=== PATIENT | female | born 1990 | race African-American/Black ===

== ENCOUNTER 2017-10-27 23:31 | Emergency (ER) | payer OTHER ==
[~2017-10-27] VITALS: Ht 154.9 cm; Wt 65.5 kg
[~2017-10-27 23:31] MED LIST: ABILIFY10 MG PO; AMBIEN10 MG PO; ARIPIPRAZOLE10 MG PO; ATARAX10 MG PO; CARAFATE1 GM PO; CITALOPRAM HBR20 MG PO; FLEXERIL10 MG PO; GABAPENTIN100 MG PO; GEODON40 MG PO; GEODON80 MG PO; MACROBID100 MG PO; NAPROSYN500 MG PO; NEURONTIN100 MG PO; No home meds; PEPCID20 MG PO; PERCOCET 5/31 TABLET PO; QUETIAPINE FUMA50 MG PO; RESTLESS LEG MED PO; SEROPHENE50 MG PO; SEROQUEL50 MG PO; SERTRALINE HCL50 MG PO; ZITHROMAX Z-PA250 MG PO; ZOLOFT; ZOLOFT25 MG PO; Zoloft PO
[2017-10-28 00:34] LABS: HEMATOCRIT 37.2 % (36.0-46.0); MCH 31.3 PG (29.0-34.0); MCHC 33.9 G/DL (30.0-36.0); MCV 92.3 FL (83-99); MEAN PLAT.VOLUME 10.6 uM^3 (9.5-12.4); PLATELET COUNT 243 K/uL (156-360); RBC DIS.WIDTH-CV 12.5 % (11.8-14.6); RBC DIS.WIDTH-SD 42.6 % (39-53); RED BLOOD COUNT 4.03 M/uL (3.80-5.20); WHITE BLOOD COUNT 7.4 K/uL (4.1-10.2)
[2017-10-28 01:00] LABS: CHLORIDE 106 mEq/L (99-109)
[2017-10-28 01:01] LABS: POTASSIUM 3.7 mEq/L (3.7-5.4); SODIUM 139 mEq/L (136-147)
[2017-10-28 01:03] LABS: GLUCOSE 94 mg/dL (70-99)
[2017-10-28 01:04] LABS: ANION GAP 12 MEQ/L (2-14)
[2017-10-28 01:05] LABS: TOTAL BILIRUBIN 0.4 mg/dL (0.0-1.0)
[2017-10-28 01:06] LABS: ALKALINE PHOSPHATASE 48 IU/L (3-129); GFR ESTIMATE (CALCULATED) > 59 mL/min/
[2017-10-28 01:08] LABS: UREA NITROGEN (BUN) 9 mg/dL (9-23)
[2017-10-28 01:16] LABS: QUANTITATIVE HCG < 4.0 MIU/ML
[2017-10-28 02:34] VITALS: BP 133/68
== END 2017-10-28 02:34 | disposition home or self-care (01) ==
LOC: EME 23:31
PROVIDERS: Physician Assistant
DX: N64.4 Mastodynia (principal); G89.29 Other chronic pain; R20.2 Paresthesia of skin; R59.0 Localized enlarged lymph nodes; F41.9 Anxiety disorder, unspecified; F17.200 Nicotine dependence, unspecified, uncomplicated; G25.81 Restless legs syndrome; Z88.8 Allergy status to other drugs, medicaments and biological substances
CPT/HCPCS: 71260; 80053; 84702; 85027; 93005; 99281; 99284

== ENCOUNTER 2018-05-25 11:54 | Emergency (ER) | payer OTHER ==
[~2018-05-25] VITALS: Ht 154.9 cm; Wt 58.3 kg
[2018-05-25 12:08] VITALS: BP 155/130
== END 2018-05-25 13:30 | disposition left against medical advice (07) ==
LOC: EME 11:54
DX: S51.812A Laceration without foreign body of left forearm, initial encounter (principal); F60.3 Borderline personality disorder; Z91.5 Personal history of self-harm; Z53.20 Procedure and treatment not carried out because of patient's decision for unspecified reasons; F17.200 Nicotine dependence, unspecified, uncomplicated; Z88.8 Allergy status to other drugs, medicaments and biological substances
CPT/HCPCS: 99281; 99284